=== PATIENT | male | born 1945 | race Caucasian/White ===

== ENCOUNTER 2023-09-24 18:09 | Outpatient (CLI) | payer OTHER | END 2023-09-24 23:59 | disposition critical access hospital (66) | LOC: EMS 18:09 | DX: R06.02 Shortness of breath (principal); R42 Dizziness and giddiness; R53.1 Weakness; R53.83 Other fatigue; R19.7 Diarrhea, unspecified; R50.9 Fever, unspecified; R00.0 Tachycardia, unspecified | CPT/HCPCS: A0425; A0427 ==

== ENCOUNTER 2023-09-24 18:21 | Inpatient (IN) | payer OTHER ==
[2023-09-24 18:52] LABS: BASOPHILS # (AUTO) 0.1 10^3/uL (0.0-0.1); BASOPHILS % (AUTO) 0.9 %; EOSINOPHILS # (AUTO) 0.2 10^3/uL (0.0-0.7); EOSINOPHILS % (AUTO) 1.6 %; HCT - HEMATOCRIT 44.3 % (42.0-52.0); HGB - HEMOGLOBIN 15.2 g/dL (14.0-18.0); LYMPHOCYTES # (AUTO) 0.8 10^3/uL (1.5-3.5); LYMPHOCYTES % (AUTO) 7.6 %; MEAN CORPUSCULAR HGB CONC 34.3 g/dL (32.0-36.0); MEAN CORPUSCULAR VOLUME 87.4 fL (80.0-94.0); MEAN PLATELET VOLUME 9.3 fL (7.4-11.4); MONOCYTES # (AUTO) 0.8 10^3/uL (0.0-1.0); MONOCYTES % (AUTO) 7.6 %; NEUTROPHILS # (AUTO) 8.5 10^3/uL (1.5-6.6); NEUTROPHILS % (AUTO) 81.9 %; PLT - PLATELET COUNT 229 10^3/uL (130-450); RED BLOOD COUNT 5.07 10^6/uL (4.70-6.10); RED CELL DISTRIBUTION WIDTH 13.9 % (12.0-15.0); WHITE BLOOD COUNT 10.3 x10^3/uL (4.8-10.8)
[2023-09-24 19:05] LABS: MAGNESIUM 1.6 mg/dL (1.7-2.3)
[2023-09-24 19:11] LABS: ALBUMIN 4.8 g/dL (3.2-5.5); ALBUMIN/GLOBULIN RATIO 2.3 (1.0-2.2); BILIRUBIN,TOTAL 1.6 mg/dL (0.2-1.0); CALCIUM 9.8 mg/dL (8.5-10.3); CREATININE 1.3 mg/dL (0.6-1.3); TOTAL PROTEIN 6.9 g/dL (6.4-8.9)
--- NOTE | 2023-09-24 19:31 | ED Physician Documentation ---
History of Present Illness - Stated complaint Stated Complaint: SYNCOPE/WEAKNESS - Chief complaint Chief Complaint: General - Additonal information Additional information: 78-year-old male with history of hypertension, coronary artery disease, heart attack presents emergency department for syncopal episode that occurred at home. Patient is here visiting from [place] he recently mated a couple days ago. Since he landed he has been having some shortness of breath and generalized malaise. Patient was going to take a shower today and started to experience Increased weakness he is here today with his daughter his daughter said that she noticed that he is stumbling around she heard him fall in the shower she is unsure if he hit his head or not but thinks that maybe he had his head on the shower by the way it sounded. Patient is also been having some fevers at home does endorse an increase shortness of breath. PD PAST MEDICAL HISTORY - Past Medical History Cardiovascular: Coronary artery disease, [place] Respiratory: None Neuro: None HEENT: None - Past Surgical History Cardiovascular: Coronary stent - Allergies Allergies/Adverse Reactions: Allergies Allergy/AdvReac Type Severity Reaction Status Date / Time chlorpromazine AdvReac Anaphylaxis Verified 09/24/23 18:51 [From Thorazine] Tetanus Vaccines and Toxoid AdvReac Anaphylaxis Verified 09/24/23 18:51 - Social History Does the pt smoke?: No Smoking Status: Never smoker Does the pt drink ETOH?: Yes ETOH Use: Beer Does the pt have substance abuse?: No - POLST Patient has POLST: No PD ED PE NORMAL - Vitals Vital signs reviewed: Yes - General General: Alert and oriented X 3, No acute distress, Other (obese) - Cardiac Cardiac: Other (tachycardic) - Respiratory Respiratory: No respiratory distress, Clear bilaterally - Abdomen Abdomen: Normal bowel sounds, Soft - Back Back: No CVA TTP - Derm Derm: Normal color, Warm and dry, No rash - Extremities Extremities: No edema, No calf tenderness / cord - Neuro Verbal: Confused Results - Vitals Vitals: Vital Signs - 24 hr 09/24/23 09/24/23 18:39 20:40 Temperature 39.4 C H Heart Rate 119 H 102 H Respiratory 26 H 28 H Rate Blood Pressure 149/89 H 170/87 H O2 Saturation 97 97 If not protocol 3 : Oxygen Flow, liters/minute Oxygen O2 Source Nasal cannula - EKG (time done) 1935 EKG releavant findings:: EKG personally interpreted by author of this note. Relevant findings are: Rate: Rate (enter#) (110) Rhythm: Sinus tachycardia, Other (RBBB) [place]: LAD QRS: Normal Ischemia: Normal ST segments Computer interpretation: Agree with computer - Labs Labs: Laboratory Tests 09/24/23 09/24/23 09/24/23 18:42 18:42 18:42 WBC 10.3 RBC 5.07 Hgb 15.2 Hct 44.3 MCV 87.4 MCH 30.0 MCHC 34.3 RDW 13.9 Plt Count 229 MPV 9.3 Neut # (Auto) 8.5 H Lymph # (Auto) 0.8 L [place] # (Auto) 0.8 Eos # (Auto) 0.2 Baso # (Auto) 0.1 Absolute Nucleated RBC 0.00 Nucleated RBC % 0.0 D-Dimer Sodium 139 Potassium 4.0 Chloride 105 Carbon Dioxide 22 Anion Gap 12.0 BUN 18 Creatinine 1.3 Estimated GFR (MDRD) 54 L Glucose 161 H Calcium 9.8 Magnesium 1.6 L Total Bilirubin 1.6 H AST 64 H ALT 50 Alkaline Phosphatase 82 Troponin I High Sens B-Natriuretic Peptide 61 Total Protein 6.9 Albumin 4.8 Globulin 2.1 Albumin/Globulin Ratio 2.3 H Lipase 23 Urine Color Urine Clarity Urine pH Ur Specific [place] Urine Protein Urine Glucose (UA) Urine Ketones Urine Occult Blood Urine Nitrite Urine Bilirubin Urine Urobilinogen Ur Leukocyte Esterase Urine RBC Urine WBC Ur Squamous Epith Cells Urine Bacteria Urine Culture Comments Nasal Adenovirus (PCR) Nasal B. parapertussis DNA (PCR) Nasal Coronavir 229E PCR Nasal Coronavir HKU1 PCR Nasal Coronavir NL63 PCR Nasal Coronavir OC43 PCR Nasal Enterovir/Rhinovir PCR Nasal Influenza B PCR Nasal Influenza A PCR Nasal Parainfluen 1 PCR Nasal Parainfluen 2 PCR Nasal Parainfluen 3 PCR Nasal Parainfluen 4 PCR Nasal RSV (PCR) Nasal B.pertussis DNA PCR Nasal C.pneumoniae (PCR) Sixto Human Metapneumo PCR Nasal M.pneumoniae (PCR) Nasal SARS-CoV-2 (PCR) 09/24/23 09/24/23 09/24/23 18:42 19:21 19:36 WBC RBC Hgb Hct MCV MCH MCHC RDW Plt Count MPV Neut # (Auto) Lymph # (Auto) Iz[place] # (Auto) Eos # (Auto) Baso # (Auto) Absolute Nucleated RBC Nucleated RBC % D-Dimer 243.3 Sodium Potassium Chloride Carbon Dioxide Anion Gap BUN Creatinine Estimated GFR (MDRD) Glucose Calcium Magnesium Total Bilirubin AST ALT Alkaline Phosphatase Troponin I High Sens 23.7 H* B-Natriuretic Peptide Total Protein Albumin Globulin Albumin/Globulin Ratio Lipase Urine Color Urine Clarity Urine pH Ur Specific [place] Urine Protein Urine Glucose (UA) Urine Ketones Urine Occult Blood Urine Nitrite Urine Bilirubin Urine Urobilinogen Ur Leukocyte Esterase Urine RBC Urine WBC Ur Squamous Epith Cells Urine Bacteria Urine Culture Comments Nasal Adenovirus (PCR) NOT DETECTED Nasal B. parapertussis DNA (PCR) NOT DETECTED Nasal Coronavir 229E PCR NOT DETECTED Nasal Coronavir HKU1 PCR NOT DETECTED Nasal Coronavir NL63 PCR NOT DETECTED Nasal Coronavir OC43 PCR NOT DETECTED Nasal Enterovir/Rhinovir PCR NOT DETECTED Nasal Influenza B PCR NOT DETECTED Nasal Influenza A PCR NOT DETECTED Nasal Parainfluen 1 PCR NOT DETECTED Nasal Parainfluen 2 PCR NOT DETECTED Nasal Parainfluen 3 PCR NOT DETECTED Nasal Parainfluen 4 PCR NOT DETECTED Nasal RSV (PCR) NOT DETECTED Nasal B.pertussis DNA PCR NOT DETECTED Nasal C.pneumoniae (PCR) NOT DETECTED [place]xt[place] Human Metapneumo PCR NOT DETECTED Nasal M.pneumoniae (PCR) NOT DETECTED Nasal SARS-CoV-2 (PCR) DETECTED A 09/24/23 19:44 WBC RBC Hgb Hct MCV MCH MCHC RDW Plt Count MPV Neut # (Auto) Lymph # (Auto) [place] # (Auto) Eos # (Auto) Baso # (Auto) Absolute Nucleated RBC Nucleated RBC % D-Dimer Sodium Potassium Chloride Carbon Dioxide Anion Gap BUN Creatinine Estimated GFR (MDRD) Glucose Calcium Magnesium Total Bilirubin AST ALT Alkaline Phosphatase Troponin I High Sens B-Natriuretic Peptide Total Protein Albumin Globulin Albumin/Globulin Ratio Lipase Urine Color YELLOW Urine Clarity CLEAR Urine pH 5.5 Ur Specific [place] 1.025 Urine Protein TRACE Urine Glucose (UA) NEGATIVE Urine Ketones TRACE Urine Occult Blood NEGATIVE Urine Nitrite NEGATIVE Urine Bilirubin NEGATIVE Urine Urobilinogen 0.2 (NORMAL) Ur Leukocyte Esterase NEGATIVE Urine RBC None Seen Urine WBC 0-3 Ur Squamous Epith Cells NONE SEEN Urine Bacteria None Seen Urine Culture Comments NOT INDICATED Nasal Adenovirus (PCR) Nasal B. parapertussis DNA (PCR) Nasal Coronavir 229E PCR Nasal Coronavir HKU1 PCR Nasal Coronavir NL63 PCR Nasal Coronavir OC43 PCR Nasal Enterovir/Rhinovir PCR Nasal Influenza B PCR Nasal Influenza A PCR Nasal Parainfluen 1 PCR Nasal Parainfluen 2 PCR Nasal Parainfluen 3 PCR Nasal Parainfluen 4 PCR Nasal RSV (PCR) Nasal B.pertussis DNA PCR Nasal C.pneumoniae (PCR) Sixto Human Metapneumo PCR Nasal M.pneumoniae (PCR) Nasal SARS-CoV-2 (PCR) - Rads (name of study) Head CT without Relevant Findings:: Final report received, EMP independent interpretation of test, Other (No acute intracranial abnormalities or findings.) CT cervical without Relevant Findings:: Final report received, EMP independent interpretation of test, Other (No subluxation no fractures) CT chest angio Relevant Findings:: Final report received, EMP independent interpretation of test, Other (Cardiomegaly no pulmonary embolism) PD Medical Decision Making - ED course ED course: 78-year-old male presents emergency department after a syncopal episode lost consciousness for unknown period of time did hit his head. Patient appears to be slightly altered he is able to tell me that he has a past medical history that includes cardiac issues but he is not unable to tell me more details than that. Because patient recently traveled he is quite tachycardic and he had the syncopal episode we went ahead and did a CTA angio of his chest to rule out pulmonary embolism which came back negative. We also did a head and neck CT without contrast also for further evaluation of any sort of intracranial abnormalities or cervical trauma which also came back negative. Labs are complete for further evaluation no leukocytosis no anemia. Patient did have very mild hypomagnesemia he was given 400 mg p.o. magnesium oxide in the emergency department for supplementation GFR slightly suppressed at 54 troponin very mildly elevated at 23.7. He was given a liter of 500 cc normal saline in the ER for most likely dehydration. He also requested to have a Lui catheter placed as he has chronic urinary retention normally takes Flomax but says that he has been feeling like he is having urinary retention unable to void. His urine did also appear quite concentrated. Respiratory panel was also complete for further evaluation given that patient is quite tachycardic, tachypneic and febrile and he tested positive for COVID-19. He is vaccinated against COVID. At this point in time given his tachypnea and his fever and altered mental status I do believe that patient would benefit from an overnight observation hospitalization for his COVID symptoms.. 2 sets of blood cultures were complete per request of hospitalist and hospitalist has graciously agreed to accept the patient for observation overnight and patient has agreed to be admitted overnight. Departure - Departure Disposition: [facility] DC/Xfer Clinical Impression: COVID-19, AMS (altered mental status) Discharge Date/Time: 09/24/23 22:46
[2023-09-24 19:48] LABS: BILIRUBIN,URINE NEGATIVE (NEGATIVE); GLUCOSE, URINE (UA) NEGATIVE (NEGATIVE); KETONES,URINE (UA) TRACE mg/dL (NEGATIVE); LEUKOCYTE ESTERASE, URINE NEGATIVE (NEGATIVE); NITRITE,URINE NEGATIVE (NEGATIVE); OCCULT BLOOD,URINE NEGATIVE (NEGATIVE); PH,URINE 5.5 PH (5.0-7.5); PROTEIN,URINE TRACE mg/dL (NEGATIVE); UROBILINOGEN,URINE 0.2 (NORMAL) E.U./dL (NORMAL)
[2023-09-24 19:49] LABS: CLARITY,URINE CLEAR (CLEAR)
[2023-09-24] MEDS ORDERED: iohexoL-300 100 ML VIAL ONE (19:55)
[2023-09-24 19:57] LABS: BACTERIA,URINE None Seen /HPF (None Seen); RBC,URINE None Seen /HPF (0-5); SQUAMOUS EPITHELIAL CELL,UR NONE SEEN (<= Few); WBC,URINE 0-3 /HPF (0-3)
[2023-09-24] MEDS: iohexoL-300 100 ML VIAL IVP ONE (20:19)
[2023-09-24 20:29] LABS: B. PARAPERTUSSIS- RESP PCR PAN NOT DETECTED; B. PERTUSSIS- RESP PCR PANEL NOT DETECTED; C. PNEUMONIAE- RESP PCR PANEL NOT DETECTED; CORONAVIRUS 229E-RESP PCR NOT DETECTED; CORONAVIRUS HKU1-RESP PCR NOT DETECTED; CORONAVIRUS NL63-RESP PCR NOT DETECTED; CORONAVIRUS OC43-RESP PCR NOT DETECTED; HUMAN METAPNEUMOVIRUS NOT DETECTED; INFLUENZA A- RESP PCR PANEL NOT DETECTED; INFLUENZA B - RESP PCR PANEL NOT DETECTED; M. PNEUMONIAE- RESP PCR PANEL NOT DETECTED; PARAINFLUENZA VIRUS 1 NOT DETECTED; PARAINFLUENZA VIRUS 2 NOT DETECTED; PARAINFLUENZA VIRUS 3 NOT DETECTED; PARAINFLUENZA VIRUS 4 NOT DETECTED; RHINOVIRUS/ENTEROVIRUS NOT DETECTED; RSV- RESP PCR PANEL NOT DETECTED
[2023-09-24 20:30] LABS: SARS-CoV-2 -RESP PCR PANEL DETECTED
--- NOTE | 2023-09-24 20:31 | CT Report ---
PROCEDURE: Head WO INDICATIONS: GLF, syncope TECHNIQUE: Noncontrast 4.5 mm thick angled axial sections acquired from the foramen magnum to the vertex. For r adiation dose reduction, the following was used: automated exposure control, adjustment of mA and/or kV according to patient size. COMPARISON: None. FINDINGS: Image quality: Excellent. CSF spaces: Basal cisterns are patent. No extra-axial fluid collections. Ventricles are symmetric in size and shape. Brain: No midline shift. No intracranial masses or hemorrhage. Hypodensities in the subcortical and periventricular white matter are most commonly seen in setting of chronic microvascular ischemic umair nges. Age-related cerebral and cerebellar volume loss is seen. Intracranial vascular calcifications a re noted in the internal carotid arteries. Skull and face: Calvarium and visualized facial bones are intact, without suspicious lesions. Sinuses: Mucous retention cysts in the maxillary sinuses. The remaining visualized paranasal sinuses and the mastoid air cells are clear. IMPRESSION: No acute intracranial pathology. Reviewed by: Jay Schwartz MD on 09/24/2023 8:29 PM PDT Approved by: Jay Schwartz MD on 09/24/2023 8:29 PM PDT Station ID: [id number]
--- NOTE | 2023-09-24 20:33 | CT Report ---
PROCEDURE: Cervical Spine WO INDICATIONS: glf, syncope TECHNIQUE: Noncontrast 3 mm thick sections acquired from the skull base to the T4 level. Sagittal and coronal r eformats were then constructed. For radiation dose reduction, the following was used: automated exp osure control, adjustment of mA and/or kV according to patient size. COMPARISON: None. FINDINGS: Image quality: Excellent. Bones: No acute fractures or dislocations. Visualized superior ribs are intact. Moderate multileve l spondylosis. Soft tissues: Prevertebral soft tissues are normal in thickness. No paravertebral hematomas. No ap ical pneumothoraces. IMPRESSION: No acute, displaced fracture or traumatic subluxation. Reviewed by: Jay Schwartz MD on 09/24/2023 8:31 PM PDT Approved by: Jay Schwartz MD on 09/24/2023 8:31 PM PDT Station ID: [id number]
--- NOTE | 2023-09-24 20:39 | CT Report ---
PROCEDURE: Angio Chest INDICATIONS: r/o PE CONTRAST: 80ml [id number] TECHNIQUE: After the administration of intravenous contrast, 2 mm axial images were acquired from the pulmonary apices to the posterior costophrenic angles during the arterial phase. In addition, 1 mm lung kernel and 5 mm soft tissue kernel reconstructions were performed. 3-dimensional coronal oblique maximum int ensity projection (MIP) reformats, 8 mm axial MIP, and 5 mm coronal and sagittal MPR reformats were t hen performed through the thorax. For radiation dose reduction, the following was used: automated exp osure control, adjustment of mA and/or kV according to patient size. COMPARISON: None. FINDINGS: Image quality: Excellent. Large vessels: No filling defects within the opacified pulmonary arteries, accounting for motion and contrast timing. No evidence of acute aortic syndrome or aortic aneurysm. Lungs and pleura: No consolidation. No pleural effusions. No pneumothorax. No suspicious pulmonary n odules which require follow up. Mediastinum: Heart size is moderately enlarged. No pericardial effusion. No large vessel abnormality. No mediastinal adenopathy by size criteria. Prominent epicardial fat-pad. Surgical clip is seen at the gastroesophageal junction Chest wall and lower neck: Thyroid is unremarkable. No axillary or supraclavicular adenopathy by size . Bones: No aggressive osseous abnormality. No acute displaced rib fracture. Upper Abdomen: Liver is hypoattenuating compatible with diffuse fatty infiltration. Cholelithiasis. C ontrast material is seen in the renal collecting systems. IMPRESSION: 1.No acute pulmonary embolus. No acute abnormality seen in the chest. 2.Moderate cardiomegaly. Mild to moderate coronary calcifications. 3.Diffuse hepatic steatosis. Reviewed by: Jay Schwartz MD on 09/24/2023 8:38 PM PDT Approved by: Jay Schwartz MD on 09/24/2023 8:38 PM PDT Station ID: [id number]
[2023-09-24] MEDS: SODIUM CHLORIDE 0.9% 500 ML IV ONE (20:47)
[2023-09-24] MEDS ORDERED: SODIUM CHLORIDE FLUSH 0.9% 10 ML SYRINGE IVP PRN (21:50)
[2023-09-24] MEDS ORDERED: ONDANSETRON 4 MG/2 ML VIAL IVP PRN (21:50)
--- NOTE | 2023-09-24 22:04 | HISTORY & PHYSICAL EXAMINATION ---
Chief Complaint - Chief Complaint Chief Complaint: Syncope History of Present Illness - History of Present Illness HPI Comment/Other: 78-year-old male with history of hypertension, coronary artery disease, heart attack presents emergency department for syncopal episode that occurred at home. Patient is here visiting from [place] he recently mated a couple days ago. Since he landed he has been having some shortness of breath and generalized malaise. Patient was going to take a shower today and started to experience Increased weakness he is here today with his daughter his daughter said that she noticed that he is stumbling around she heard him fall in the shower she is unsure if he hit his head or not but thinks that maybe he had his head on the shower by the way it sounded. Patient is also been having some fevers at home does endorse an increase shortness of breath. On presentation, pt was febrile, tachycardic Labs showed WBC 10.2, Mag 1.6. COVID positive CT head, C spine and CTA chest showed no acute abnormalities In ER, pt was given IVF Pt is admitted due to syncope, weakness, COVID, Dehydration, hypomagnesemia and AMS History - Past Medical History Cardiovascular: reports: Coronary artery disease, [place] Respiratory: reports: None Neuro: reports: None HEENT: reports: None - Past Surgical History Cardiovascular: reports: Coronary stent - POLST Patient has POLST: No Meds/Allgy - Allergies Allergies/Adverse Reactions: Allergies Allergy/AdvReac Type Severity Reaction Status Date / Time chlorpromazine AdvReac Anaphylaxis Verified 09/24/23 18:51 [From Thorazine] Tetanus Vaccines and Toxoid AdvReac Anaphylaxis Verified 09/24/23 18:51 Review of Systems - Constitutional Constitutional: reports: Weakness - Other Findings Other Findings: 10 point systems were reviewed and were negative except mentioned in HPI Exam - Vital Signs Vital Signs: Vital Signs x48h Temp Pulse Resp BP Pulse Ox O2 Flow Rate 09/24/23 20:40 102 H 28 H 170/87 H 97 3 09/24/23 18:39 39.4 C H 119 H 26 H 149/89 H 97 - Physical Exam General Appearance: positive: No acute distress Eyes Bilateral: positive: Normal inspection ENT: positive: ENT inspection nml Neck: positive: Nml inspection Respiratory: positive: No respiratory distress Cardiovascular: positive: Tachycardia Abdomen: positive: Non-tender, No distention Skin: positive: No rash Neurologic/Psychiatric: positive: Motor nml, Disoriented to time Conclusion/Plan - Lab Results Fish Bones: 09/24/23 18:42 09/24/23 18:42 - Other Other Results/Comments: A: Syncope Weakness AMS COVID Dehydration Hypomagnesemia HTN CAD H/O TX Plan; Admit in tele Continuous cardiac monitoring Seriel cardiac enZymes Echocardiogram Cont IVF Monitor i/o, electrolytes PT eval NPO Swallow eval Neuro checks Follow cultures Start Rocephin and zithromax Replace magnesium DVT prophylaxic: SCD Full code Pt is admitted as inpatient as more than 2 midnight stay is expected
[2023-09-25] MEDS: SODIUM CHLORIDE FLUSH 0.9% 10 ML SYRINGE IVP SCH (01:16)
[2023-09-25] MEDS: SODIUM CHLORIDE 0.9% 1,000 ML IV SCH (01:16)
[2023-09-25] MEDS: ACETAMINOPHEN 325 MG TABLET PO PRN (04:08)
[2023-09-25] MEDS: cefTRIAXone 1 GM in SODIUM CHLORIDE 0.9% MINIBAG 100 ML IV SCH (08:58)
[2023-09-25] MEDS: AZITHROMYCIN INJ 500 MG in SODIUM CHLORIDE 0.9% 250 ML IV SCH (10:44)
[2023-09-25] MEDS ORDERED: MAGNESIUM SULFATE 1 GM in SODIUM CHLORIDE 0.9% 50 ML IV ONE (11:11)
[2023-09-25] MEDS ORDERED: NON FORMULARY MED (Remdesivir 200 MG) IVP ONE (11:23)
--- NOTE | 2023-09-25 11:29 | PROVIDER PROGRESS NOTE ---
Assessment/Plan - Problem List (1) Syncope and collapse Assessment/Plan: Syncopal episode with fall which precipitated admission. Had a fall in the shower yesterday. Syncopal workup initiated. Although causes thought to be his COVID and resultant hypoxia. Echocardiogram is pending at this time. Head CT was negative. Cervical spine CT was negative. Patient does not have any neck pain or back pain today. (2) COVID-19 Assessment/Plan: Symptoms began yesterday just prior to his episode of syncope and collapse. He had his initial 2 COVID vaccinations but did not have any booster shots. Given that he has had 1 day of symptoms prior to admission. Will start remdesivir per protocol as this is 200 mg IV today and then 100 mg a day for 4 days. He will a lso be started on Decadron 6 mg daily for 10 days. Chest imaging, a CTA of the chest due to rule out pulmonary embolus was negative, or PE as well as for pneumonia.. Hypoxia is improving. He was able to sit up at the edge of the bed with minimal assistance and has an O2 sat of 97% on 3 L. He does not have any baseline lung disease. He is not on any respiratory medications at home per his report. Pharmacy is currently reconciling his medications. (3) Troponin level elevated Assessment/Plan: This patient is without chest pain at this time. He has some shortness of breath on exertion consistent with his COVID symptomatology. His troponin was elevated in the 20s this morning. Came up to the 40s after admission. Has a history of CAD s/p [place] in the past. Denies any interventions for this. (4) AMS (altered mental status) Qualifiers: Altered mental status type: disorientation Qualified Code(s): R41.0 - Disorientation, unspecified Assessment/Plan: He is currently alert and oriented to person place and time. His altered mental status has resolved.He feels sleepy and tired but has otherwise improved his mental status greatly after treatment with supplemental oxygen.Will continue to treat with supplemental oxygen and hopefully can eventually wean. (5) Hypomagnesemia Assessment/Plan: Level was 1.6 this morning. I have ordered replacement today. We will check magnesium level again in the a.m. (6) Dehydration Assessment/Plan: He is currently on IV NS at 80 mL/h. He is taking p.o. fluids at this time. He is not having any difficulty swallowing. Had some ketones in his urine at the time of admission. Galindo is in place for accurate intake/output monitoring. Additionally patient was unable to urinate while lying down last night. We will plan to discontinue this Galindo tomorrow morning. Patient was educated about the risk of catheter associated urinary tract infection. (7) Serum total bilirubin elevated Assessment/Plan: Patient has no jaundice on exam. Level is elevated at 1.6. I do not have any history with regards to this. Will repeat CMP in the a.m. (8) Pre-diabetes Assessment/Plan: Patient gives a history of prediabetes in the outpatient environment. He is not on any treatment for this. Aside from diet control. Given the fact that we will be treating his COVID with hypoxia with Decadron. Will need to institute glucose monitoring and will aim to keep his glucose at less than 140 while inpatient.For now I have started correction insulin only. However can escalate as dictated by clinical circumstances. Will check hemoglobin A1c to get an idea of where his diabetes treatment and management is at this time. (9) Hypertension Qualifiers: Hypertension type: primary hypertension Qualified Code(s): I10 - Essential (primary) hypertension Assessment/Plan: Pharmacy currently reconciling medications. has been hypertensive here up to 170/87 in the ED. I will reinstitute home blood pressure medications here. - Current Meds Current Meds: Current Medications Generic Name Dose Route Start Last Admin Trade Name Freq PRN Reason Stop Dose Admin Acetaminophen 650 mg 09/25/23 00:15 09/25/23 04:08 Acetaminophen 325 Mg Tablet PO 650 mg Q4HR PRN Administration Pain or Fever > 38C (100.4F) Ceftriaxone Sodium 1 gm/ 100 mls @ 200 mls/hr 09/25/23 09:00 09/25/23 08:58 Sodium Chloride IV 200 mls/hr DAILY GLORIA Administration Azithromycin 500 mg/ Sodium 250 mls @ 250 mls/hr 09/25/23 09:00 09/25/23 10:44 Chloride IV 250 mls/hr DAILY GLORIA Administration Sodium Chloride 1,000 mls @ 80 mls/hr 09/24/23 23:00 09/25/23 01:16 Normal Saline 0.9% IV 80 mls/hr .[id number] GLORIA Administration Sodium Chloride 10 ml 09/25/23 01:00 09/25/23 08:58 Sodium Chloride Flush 0.9% 10 Ml Syringe IVP 10 ml 0100,0900,1700 GLOIRA Administration - Lab Result Fish Bone Diagrams: 09/24/23 18:42 09/24/23 18:42 - Additional Planning My Orders: My Active Orders 09/25/23 11:23 Remdesivir 200 mg IVP ONCE ONE 09/25/23 12:00 Magnesium Sulfate 2 Gram [Magnesium Sulfate] 2 gm in 50 ml IV ONCE dexAMETHasone [Decadron] 4 mg PO DAILY Subjective - Subjective Patient Reports: Feeling Better (He feels much improved as compared to his stat us yesterday. He states that he is still coughing. This cough and all of his symptoms started yesterday prior to his episode of syncope and collapse. He states that he never feels truly well, however he was [place] the [place]), Cough (On deep inspiration.) Nursing Reports: No Complaints Objective Vital Signs: Vital Signs - 24 hr 09/24/23 09/24/23 09/24/23 18:39 20:40 22:00 Temperature 39.4 C H 37.6 C Heart Rate 119 H 102 H 98 Heart Rate [ Brachial] Respiratory 26 H 28 H 20 Rate Blood Pressure 149/89 H 170/87 H 135/76 H Blood Pressure [Right Brachial artery] O2 Saturation 97 97 99 If not protocol 3 2 : Oxygen Flow, liters/minute 09/24/23 09/24/23 09/25/23 22:54 23:00 01:21 Temperature 38.1 C H 37.4 C Heart Rate Heart Rate [ 99 85 Brachial] Respiratory 24 26 H Rate Blood Pressure Blood Pressure 155/77 H 148/69 H [Right Brachial artery] O2 Saturation 94 96 If not protocol 3 3 3 : Oxygen Flow, liters/minute 09/25/23 09/25/23 09/25/23 04:05 05:40 09:00 Temperature 38.6 C H 36.6 C 36.4 C L Heart Rate Heart Rate [ 88 77 Brachial] Respiratory 20 20 Rate Blood Pressure Blood Pressure 148/81 H 143/84 H [Right Brachial artery] O2 Saturation 96 98 If not protocol 3 3 : Oxygen Flow, liters/minute 09/25/23 10:45 Temperature Heart Rate Heart Rate [ Brachial] Respiratory Rate Blood Pressure Blood Pressure [Right Brachial artery] O2 Saturation 97 If not protocol 2 : Oxygen Flow, liters/minute Oxygen O2 Source Nasal cannula I&O (Last 24 Hrs): Intake and Output Totals x24h 09/23/23 09/24/23 09/25/23 23:59 23:59 23:59 Intake Total 500 440 Output Total 525 650 Balance -25 -210 General: Alert, Oriented x3, Cooperative HEENT: PERRLA, Mucous membr. moist/pink Neck: Supple, No JVD Lymphatic: no adenopathy Neuro: Alert, Non Focal Cardiovascular: Regular rate Respiratory: Rhonchi (occasional on cough) Abdomen: Normal bowel sounds, No tenderness Genitourinary: Normal Inspection (galindo in place) Extremities: No cyanosis, No edema, Normal pulses Skin: No significant lesion (multiple healing lesions about the lower extr emities, no erythema.) - Results Results: Laboratory Results WBC 10.3 x10^3/uL (4.8-10.8) 09/24/23 18:42 RBC 5.07 10^6/uL (4.70-6.10) 09/24/23 18:42 Hgb 15.2 g/dL (14.0-18.0) 09/24/23 18:42 Hct 44.3 % (42.0-52.0) 09/24/23 18:42 MCV 87.4 fL (80.0-94.0) 09/24/23 18:42 MCH 30.0 pg (27.0-31.0) 09/24/23 18:42 MCHC 34.3 g/dL (32.0-36.0) 09/24/23 18:42 RDW 13.9 % (12.0-15.0) 09/24/23 18:42 Plt Count 229 10^3/uL (130-450) 09/24/23 18:42 MPV 9.3 fL (7.4-11.4) 09/24/23 18:42 Neut # (Auto) 8.5 10^3/uL (1.5-6.6) H 09/24/23 18:42 Lymph # (Auto) 0.8 10^3/uL (1.5-3.5) L 09/24/23 18:42 [place] # (Auto) 0.8 10^3/uL (0.0-1.0) 09/24/23 18:42 Eos # (Auto) 0.2 10^3/uL (0.0-0.7) 09/24/23 18:42 Baso # (Auto) 0.1 10^3/uL (0.0-0.1) 09/24/23 18:42 Absolute Nucleated RBC 0.00 x10^3/uL 09/24/23 18:42 Nucleated RBC % 0.0 /100WBC 09/24/23 18:42 D-Dimer 243.3 ng/mL (200.0-255.0) 09/24/23 19:21 Sodium 139 mmol/L (135-145) 09/24/23 18:42 Potassium 4.0 mmol/L (3.5-4.5) 09/24/23 18:42 Chloride 105 mmol/L (101-111) 09/24/23 18:42 Carbon Dioxide 22 mmol/L (21-32) 09/24/23 18:42 Anion Gap 12.0 (6-13) 09/24/23 18:42 BUN 18 mg/dL (6-20) 09/24/23 18:42 Creatinine 1.3 mg/dL (0.6-1.3) 09/24/23 18:42 Estimated GFR (MDRD) 54 (>89) L 09/24/23 18:42 Glucose 161 mg/dL (74-104) H 09/24/23 18:42 Calcium 9.8 mg/dL (8.5-10.3) 09/24/23 18:42 Magnesium 1.6 mg/dL (1.7-2.3) L 09/24/23 18:42 Total Bilirubin 1.6 mg/dL (0.2-1.0) H 09/24/23 18:42 AST 64 IU/L (10-42) H 09/24/23 18:42 ALT 50 IU/L (10-60) 09/24/23 18:42 Alkaline Phosphatase 82 IU/L (42-121) 09/24/23 18:42 Troponin I High Sens 43.9 ng/L (2.3-19.7) H* 09/25/23 05:45 B-Natriuretic Peptide 61 pg/mL (5-100) 09/24/23 18:42 Total Protein 6.9 g/dL (6.4-8.9) 09/24/23 18:42 Albumin 4.8 g/dL (3.2-5.5) 09/24/23 18:42 Globulin 2.1 g/dL (2.1-4.2) 09/24/23 18:42 Albumin/Globulin Ratio 2.3 (1.0-2.2) H 09/24/23 18:42 Lipase 23 U/L (11-82) 09/24/23 18:42 Urine Color YELLOW 09/24/23 19:44 Urine Clarity CLEAR (CLEAR) 09/24/23 19:44 Urine pH 5.5 PH (5.0-7.5) 09/24/23 19:44 Ur Specific [place] 1.025 (1.002-1.030) 09/24/23 19:44 Urine Protein TRACE mg/dL (NEGATIVE) 09/24/23 19:44 Urine Glucose (UA) NEGATIVE mg/dL (NEGATIVE) 09/24/23 19:44 Urine Ketones TRACE mg/dL (NEGATIVE) 09/24/23 19:44 Urine Occult Blood NEGATIVE (NEGATIVE) 09/24/23 19:44 Urine Nitrite NEGATIVE (NEGATIVE) 09/24/23 19:44 Urine Bilirubin NEGATIVE (NEGATIVE) 09/24/23 19:44 Urine Urobilinogen 0.2 (NORMAL) E.U./dL (NORMAL) 09/24/23 19:44 Ur Leukocyte Esterase NEGATIVE (NEGATIVE) 09/24/23 19:44 Urine RBC None Seen /HPF (0-5) 09/24/23 19:44 Urine WBC 0-3 /HPF (0-3) 09/24/23 19:44 Ur Squamous Epith Cells NONE SEEN (<= Few) 09/24/23 19:44 Urine Bacteria None Seen /HPF (None Seen) 09/24/23 19:44 Urine Culture Comments NOT INDICATED 09/24/23 19:44 Nasal Adenovirus (PCR) NOT DETECTED 09/24/23 19:36 Nasal B. parapertussis DNA (PCR) NOT DETECTED 09/24/23 19:36 Nasal Coronavir 229E PCR NOT DETECTED 09/24/23 19:36 Nasal Coronavir HKU1 PCR NOT DETECTED 09/24/23 19:36 Nasal Coronavir NL63 PCR NOT DETECTED 09/24/23 19:36 Nasal Coronavir OC43 PCR NOT DETECTED 09/24/23 19:36 Nasal Enterovir/Rhinovir PCR NOT DETECTED 09/24/23 19:36 Nasal Influenza B PCR NOT DETECTED 09/24/23 19:36 Nasal Influenza A PCR NOT DETECTED 09/24/23 19:36 Nasal Parainfluen 1 PCR NOT DETECTED 09/24/23 19:36 Nasal Parainfluen 2 PCR NOT DETECTED 09/24/23 19:36 Nasal Parainfluen 3 PCR NOT DETECTED 09/24/23 19:36 Nasal Parainfluen 4 PCR NOT DETECTED 09/24/23 19:36 Nasal RSV (PCR) NOT DETECTED 09/24/23 19:36 Nasal B.pertussis DNA PCR NOT DETECTED 09/24/23 19:36 Nasal C.pneumoniae (PCR) NOT DETECTED 09/24/23 19:36 Sixto Human Metapneumo PCR NOT DETECTED 09/24/23 19:36 Nasal M.pneumoniae (PCR) NOT DETECTED 09/24/23 19:36 Nasal SARS-CoV-2 (PCR) DETECTED A 09/24/23 19:36 ABX Reporting Has patient been on IV antibiotics over the past 48 hours?: Yes Current Medications - Current Medications Current Medications: Medications Azithromycin 500 mg/ Sodium (Chloride) 250 mls @ 250 mls/hr IV DAILY [facility] Last Admin: 09/25/23 10:44 Dose: 250 mls/hr Remdesivir 100 mg/ Sodium (Chloride) 100 mls @ 200 mls/hr IV DAILY [facility] Stop: 09/29/23 09:29 Ceftriaxone Sodium 1 gm/ (Sodium Chloride) 100 mls @ 200 mls/hr IV DAILY [facility] Last Admin: 09/25/23 08:58 Dose: 200 mls/hr Dexamethasone (Dexamethasone 4 Mg Tablet) 6 mg PO DAILY [facility] Stop: 10/04/23 09:01 Acetaminophen (Acetaminophen 325 Mg Tablet) 650 mg PO Q4HR PRN PRN Reason: Pain or Fever > 38C (100.4F) Last Admin: 09/25/23 04:08 Dose: 650 mg Magnesium Sulfate (Magnesium Sulfate) 2 gm in 50 mls @ 25 mls/hr IV ONCE ONE Stop: 09/25/23 13:59 Remdesivir 200 mg/ Sodium (Chloride) 250 mls @ 250 mls/hr IV ONCE ONE Stop: 09/25/23 13:59 Sodium Chloride (Normal Saline 0.9%) 1,000 mls @ 80 mls/hr IV .[id number] GLORIA Last Admin: 09/25/23 01:16 Dose: 80 mls/hr
--- NOTE | 2023-09-25 11:30 | PHARMACY PROGRESS NOTE ---
- Best Possible Medication History Admit Date and Time: 09/24/23 2390 Processed by: Pharmacy Medications reviewed in ED?: No Medication History completed: Yes Secondary Source(s): Written medication list, Pharmacy records As the person ultimately responsible for medication therapy, providers are able to order a medication from an existing home medication list in [facility] via the "Reconcile Routine" prior to Confirmation of that medication by production support manager. Such practice is discouraged except when the physician, in their clinical judgment, deems that a medical need exists for a medication without regard to previous use.
[2023-09-25] MEDS: dexAMETHasone 4 MG TABLET PO SCH (13:17)
[2023-09-25] MEDS: MAGNESIUM SULFATE 2 GRAM 2 GM/50 ML BAG IV ONE (13:17)
[2023-09-25 13:50] LABS: ESTIMATED AVERAGE GLUCOSE 134 mg/dL (70-100); HEMOGLOBIN A1c% 6.3 % (4.27-6.07)
[2023-09-25] MEDS: TAMSULOSIN 0.4 MG CAPSULE PO SCH (14:44)
[2023-09-25] MEDS: REMDESIVIR 200 MG in SODIUM CHLORIDE 0.9% 250 ML IV ONE (15:15)
[2023-09-25] MEDS: INSULIN LISPRO 300 UNIT/3 ML PEN SUBQ SCH (17:21)
[2023-09-25] MEDS: METOPROLOL TARTRATE 50 MG TABLET PO SCH (20:50)
[2023-09-25] MEDS: LOPERAMIDE 2 MG CAPSULE PO PRN (20:50)
[2023-09-26] MEDS: PANTOPRAZOLE 40 MG TABLET PO SCH (06:06)
[2023-09-26 06:22] LABS: HCT - HEMATOCRIT 42.5 % (42.0-52.0); MEAN CORPUSCULAR HEMOGLOBIN 28.9 pg (27.0-31.0); MEAN CORPUSCULAR HGB CONC 32.9 g/dL (32.0-36.0); MEAN CORPUSCULAR VOLUME 87.8 fL (80.0-94.0); MEAN PLATELET VOLUME 9.8 fL (7.4-11.4); RED BLOOD COUNT 4.84 10^6/uL (4.70-6.10); RED CELL DISTRIBUTION WIDTH 13.6 % (12.0-15.0); WHITE BLOOD COUNT 6.7 x10^3/uL (4.8-10.8)
[2023-09-26 06:35] LABS: ALBUMIN 4.2 g/dL (3.2-5.5); ALBUMIN/GLOBULIN RATIO 1.7 (1.0-2.2); CALCIUM 9.3 mg/dL (8.5-10.3); CREATININE 1.3 mg/dL (0.6-1.3); POTASSIUM 4.2 mmol/L (3.5-4.5); TOTAL PROTEIN 6.7 g/dL (6.4-8.9)
[2023-09-26] MEDS: FLUTICASONE NASAL SPRAY NAS SCH (08:20)
[2023-09-26] MEDS: ATORVASTATIN 40 MG TABLET PO SCH (08:22)
[2023-09-26] MEDS: FOLIC ACID 1 MG TABLET PO SCH (08:22)
[2023-09-26] MEDS: REMDESIVIR 100 MG in SODIUM CHLORIDE 0.9% 100ML 100 ML IV SCH (08:23)
[2023-09-26] MEDS: METOPROLOL TARTRATE 50 MG TABLET PO SCH (08:29)
--- NOTE | 2023-09-26 12:19 | PROVIDER PROGRESS NOTE ---
Subjective - Prog Note Date Prog Note Date: 09/26/23 Prog Note Time: 12:15 - Subjective Pt reports feeling: Improved (Feels 100% better than at the time of admission. Cough is minimal. has been out of bed independently to the chair. Lui was removed this AM and he is voiding without difficulty. denies any chest pain, or extremity swelling.) Subjective: He is optimistic and feels that he could go home soon. Still having a little bit of fatigue. But denies any wheezing or shortness of breath at this time. We had discussed code status yesterday and he desires to be full code at this time. Current Medications - Current Medications Current Medications: Medications Acetaminophen (Acetaminophen 325 Mg Tablet) 650 mg PO Q4HR PRN PRN Reason: Pain or Fever > 38C (100.4F) Last Admin: 09/25/23 04:08 Dose: 650 mg Atorvastatin Calcium (Atorvastatin 40 Mg Tablet) 80 mg PO DAILY [facility] Last Admin: 09/26/23 08:22 Dose: 80 mg Dexamethasone (Dexamethasone 4 Mg Tablet) 6 mg PO DAILY [facility] Stop: 10/04/23 09:01 Last Admin: 09/26/23 08:21 Dose: 6 mg Fluticasone Propionate (Fluticasone Nasal [place]) 2 sprays DANIELITO DAILY [facility] Last Admin: 09/26/23 08:20 Dose: 2 sprays Folic Acid (Folic Acid 1 Mg Tablet) 1 mg PO DAILY [facility] Last Admin: 09/26/23 08:22 Dose: 1 mg Insulin Human Lispro (Insulin Lispro 300 Unit/3 Ml Pen) 1 - 5 unit SUBQ 0800,1200,1700,2100 [facility]; Protocol Last Admin: 09/26/23 12:00 Dose: 1 unit Loperamide HCl (Loperamide 2 Mg Capsule) 2 mg PO QID PRN PRN Reason: Diarrhea Last Admin: 09/25/23 20:50 Dose: 2 mg Metoprolol Tartrate (Metoprolol Tartrate 50 Mg Tablet) 50 mg PO BID [facility] Last Admin: 09/26/23 08:29 Dose: 50 mg Ondansetron HCl (Ondansetron 4 Mg/2 Ml Vial) 4 mg IVP Q6HR PRN PRN Reason: Nausea / Vomiting Pantoprazole Sodium (Pantoprazole 40 Mg Tablet) 40 mg PO QDAC [facility] Last Admin: 09/26/23 06:06 Dose: 40 mg Remdesivir 100 mg/ Sodium (Chloride) 100 mls @ 200 mls/hr IV DAILY [facility] Stop: 09/29/23 09:29 Last Admin: 09/26/23 11:14 Dose: Infused Tamsulosin HCl (Tamsulosin 0.4 Mg Capsule) 0.4 mg PO DAILY [facility] Last Admin: 09/26/23 08:23 Dose: 0.4 mg Objective - Vital Signs/Intake & Output Vital Signs: Vital Signs x48h Temp Pulse Resp BP BP Pulse Ox O2 Flow Rate 09/26/23 11:31 95 09/26/23 10:45 96 09/26/23 08:29 130/70 09/26/23 08:07 37 C 64 20 130/70 97 2 09/26/23 08:03 2 09/26/23 05:25 36.1 C L 60 22 123/69 97 2 Intake & Output: Intake & Output 09/23/23 09/24/23 09/25/23 09/26/23 23:59 23:59 23:59 23:59 Intake Total 500 3360 1767 Output Total 525 1975 450 Balance -25 1385 1317 - Objective General Appearance: positive: No acute distress Eyes Bilateral: positive: Normal inspection, PERRL ENT: positive: ENT inspection nml Neck: positive: Nml inspection, No JVD (fully bearded) Respiratory: positive: Chest non-tender, Breath sounds nml Cardiovascular: positive: Regular rate & rhythm Abdomen: positive: Non-tender Back: positive: Nml inspection Skin: positive: Color nml Extremities: positive: No pedal edema Neurologic/Psychiatric: positive: Oriented x3 - Lab Results Fish Bones: 09/26/23 06:04 09/26/23 06:04 Other Labs: Lab Results x24hrs 09/26/23 09/26/23 09/26/23 Range/Units 11:27 08:48 08:48 WBC (4.8-10.8) x10^3/uL RBC (4.70-6.10) 10^6/uL Hgb (14.0-18.0) g/dL Hct (42.0-52.0) % MCV (80.0-94.0) fL MCH (27.0-31.0) pg MCHC (32.0-36.0) g/dL RDW (12.0-15.0) % Plt Count (130-450) 10^3/uL MPV (7.4-11.4) fL Sodium (135-145) mmol/L Potassium (3.5-4.5) mmol/L Chloride (101-111) mmol/L Carbon Dioxide (21-32) mmol/L Anion Gap (6-13) BUN (6-20) mg/dL Creatinine (0.6-1.3) mg/dL Estimated GFR (MDRD) (>89) Glucose (74-104) mg/dL POC Whole Bld Glucose 166 H (70 - 100) mg/dL Estimat Average Glucose (70-100) mg/dL Hemoglobin A1c % (4.27-6.07) % Calcium (8.5-10.3) mg/dL Total Bilirubin (0.2-1.0) mg/dL AST (10-42) IU/L ALT (10-60) IU/L Alkaline Phosphatase (42-121) IU/L Troponin I High Sens 16.9 (2.3-19.7) ng/L Total Protein (6.4-8.9) g/dL Albumin (3.2-5.5) g/dL Globulin (2.1-4.2) g/dL Albumin/Globulin Ratio (1.0-2.2) Folate 16.0 (5.90 - >24.8) ng/mL 09/26/23 09/26/23 09/26/23 Range/Units 08:00 06:04 06:04 WBC (4.8-10.8) x10^3/uL RBC (4.70-6.10) 10^6/uL Hgb (14.0-18.0) g/dL Hct (42.0-52.0) % MCV (80.0-94.0) fL MCH (27.0-31.0) pg MCHC (32.0-36.0) g/dL RDW (12.0-15.0) % Plt Count (130-450) 10^3/uL MPV (7.4-11.4) fL Sodium 137 (135-145) mmol/L Potassium 4.2 (3.5-4.5) mmol/L Chloride 105 (101-111) mmol/L Carbon Dioxide 27 (21-32) mmol/L Anion Gap 5.0 L (6-13) BUN 16 (6-20) mg/dL Creatinine 1.3 (0.6-1.3) mg/dL Estimated GFR (MDRD) 54 L (>89) Glucose 148 H (74-104) mg/dL POC Whole Bld Glucose 133 H (70 - 100) mg/dL Estimat Average Glucose (70-100) mg/dL Hemoglobin A1c % (4.27-6.07) % Calcium 9.3 (8.5-10.3) mg/dL Total Bilirubin 1.0 (0.2-1.0) mg/dL AST 39 (10-42) IU/L ALT 42 (10-60) IU/L Alkaline Phosphatase 69 (42-121) IU/L Troponin I High Sens 16.2 (2.3-19.7) ng/L Total Protein 6.7 (6.4-8.9) g/dL Albumin 4.2 (3.2-5.5) g/dL Globulin 2.5 (2.1-4.2) g/dL Albumin/Globulin Ratio 1.7 (1.0-2.2) Folate (5.90 - >24.8) ng/mL 09/26/23 09/25/23 09/25/23 Range/Units 06:04 20:43 16:47 WBC 6.7 (4.8-10.8) x10^3/uL RBC 4.84 (4.70-6.10) 10^6/uL Hgb 14.0 (14.0-18.0) g/dL Hct 42.5 (42.0-52.0) % MCV 87.8 (80.0-94.0) fL MCH 28.9 (27.0-31.0) pg MCHC 32.9 (32.0-36.0) g/dL RDW 13.6 (12.0-15.0) % Plt Count 193 (130-450) 10^3/uL MPV 9.8 (7.4-11.4) fL Sodium (135-145) mmol/L Potassium (3.5-4.5) mmol/L Chloride (101-111) mmol/L Carbon Dioxide (21-32) mmol/L Anion Gap (6-13) BUN (6-20) mg/dL Creatinine (0.6-1.3) mg/dL Estimated GFR (MDRD) (>89) Glucose (74-104) mg/dL POC Whole Bld Glucose 199 H 164 H (70 - 100) mg/dL Estimat Average Glucose (70-100) mg/dL Hemoglobin A1c % (4.27-6.07) % Calcium (8.5-10.3) mg/dL Total Bilirubin (0.2-1.0) mg/dL AST (10-42) IU/L ALT (10-60) IU/L Alkaline Phosphatase (42-121) IU/L Troponin I High Sens (2.3-19.7) ng/L Total Protein (6.4-8.9) g/dL Albumin (3.2-5.5) g/dL Globulin (2.1-4.2) g/dL Albumin/Globulin Ratio (1.0-2.2) Folate (5.90 - >24.8) ng/mL 09/25/23 Range/Units 05:45 WBC (4.8-10.8) x10^3/uL RBC (4.70-6.10) 10^6/uL Hgb (14.0-18.0) g/dL Hct (42.0-52.0) % MCV (80.0-94.0) fL MCH (27.0-31.0) pg MCHC (32.0-36.0) g/dL RDW (12.0-15.0) % Plt Count (130-450) 10^3/uL MPV (7.4-11.4) fL Sodium (135-145) mmol/L Potassium (3.5-4.5) mmol/L Chloride (101-111) mmol/L Carbon Dioxide (21-32) mmol/L Anion Gap (6-13) BUN (6-20) mg/dL Creatinine (0.6-1.3) mg/dL Estimated GFR (MDRD) (>89) Glucose (74-104) mg/dL POC Whole Bld Glucose (70 - 100) mg/dL Estimat Average Glucose 134 H (70-100) mg/dL Hemoglobin A1c % 6.3 H (4.27-6.07) % Calcium (8.5-10.3) mg/dL Total Bilirubin (0.2-1.0) mg/dL AST (10-42) IU/L ALT (10-60) IU/L Alkaline Phosphatase (42-121) IU/L Troponin I High Sens (2.3-19.7) ng/L Total Protein (6.4-8.9) g/dL Albumin (3.2-5.5) g/dL Globulin (2.1-4.2) g/dL Albumin/Globulin Ratio (1.0-2.2) Folate (5.90 - >24.8) ng/mL - Diagnostic Imaging Diagnostic Imaging Results: positive: See rad report Diagnostic Imaging Comments: Echocardiogram shows normal LVH function with ejection fraction 60 to 65%. Mildly abnormal right heart pressures. Right ventricular systolic pressure 40 mmHg No valvular disease ABX Reporting Has patient been on IV antibiotics over the past 48 hours?: Yes Assessment/Plan - Problem List (1) Syncope and collapse Impression: Assessment/Plan: Syncopal episode with fall which precipitated admission. Had a fall in the shower on the date of admission Syncopal workup completed. I have reviewed echocardiogram report. His syncope was caused by COVID and resultant hypoxia. Head CT was negative. Cervical spine CT was negative. Patient does not have any neck pain or back pain. I anticipate discharge tomorrow. (2) COVID-19 Assessment/Plan: Symptoms began just prior to his episode of syncope and collapse. He had his initial 2 COVID vaccinations but did not have any booster shots. was started on remdesivir. Day #2/5 Decdron day #2. Chest imaging, a CTA of the chest due to rule out pulmonary embolus was negative, or PE as well as for pneumonia.. Hypoxia improved. O2 sat 95-97% on 2L NC. He does not have any baseline lung disease. He is not on any respiratory medications at home. (3) Troponin level elevated Assessment/Plan: This patient is without chest pain at this time. shortness of breath improved. Troponin with mild elevations at the time of admit, but back down today. 16.2. Has a history of CAD s/p [place] in the past. reports to me today that he has had stent placement in the past, and is on ASA 81mg at baseline. I will enedelia nstitute this therapy. (4) AMS (altered mental status) Qualifiers: Altered mental status type: disorientation Qualified Code(s): R41.0 - Disorientation, unspecified Assessment/Plan: He is currently alert and oriented to person place and time. His altered mental status has resolved.He feels sleepy and tired but has otherwise improved his mental status greatly after treatment with supplemental oxygen.Will continue to treat with supplemental oxygen and hopefully can eventually wean. (5) Hypomagnesemia Assessment/Plan: repleted yesterday. check magnesium level in AM (6) Dehydration Assessment/Plan: Eating, drinking and urinating well. no orthostatic dizziness, resolved. (7) Serum total bilirubin elevated Assessment/Plan: Patient has no jaundice on exam. Level was elevated at 1.6 at the time of admit. normalized today (8) Pre-diabetes Assessment/Plan: Patient gives a history of prediabetes in the outpatient environment. He is not on any treatment for this. Aside from diet control. We have instituted glucose monitoring given the fact that I have placed him on on Decadron. He is requiring small amounts of correction insulin for blood sugars which are less than 200. His hemoglobin A1c is 6.3%. Given his age this shows adequate control. (9) Hypertension Qualifiers: Hypertension type: primary hypertension Qualified Code(s): I10 - Essential (primary) hypertension Assessment/Plan: Home medications restarted. We did put hold parameters on his metoprolol as he has had some heart rates that have been in the low 60s. He did get his metoprolol this morning. And this would be a good idea in light of his coronary artery disease.
[2023-09-27 06:01] LABS: HCT - HEMATOCRIT 41.3 % (42.0-52.0); HGB - HEMOGLOBIN 14.1 g/dL (14.0-18.0); MEAN CORPUSCULAR HEMOGLOBIN 29.9 pg (27.0-31.0); MEAN CORPUSCULAR HGB CONC 34.1 g/dL (32.0-36.0); MEAN CORPUSCULAR VOLUME 87.5 fL (80.0-94.0); MEAN PLATELET VOLUME 9.8 fL (7.4-11.4); RED BLOOD COUNT 4.72 10^6/uL (4.70-6.10); RED CELL DISTRIBUTION WIDTH 13.8 % (12.0-15.0); WHITE BLOOD COUNT 7.2 x10^3/uL (4.8-10.8)
[2023-09-27 06:21] LABS: CALCIUM 9.2 mg/dL (8.5-10.3); CREATININE 1.2 mg/dL (0.6-1.3); MAGNESIUM 2.1 mg/dL (1.7-2.3); POTASSIUM 3.9 mmol/L (3.5-4.5)
[2023-09-27 08:48] VITALS: O2SAT 96
--- NOTE | 2023-09-27 11:07 | Discharge Plan ---
Discharge Plan Problem Reviewed?: Yes Disposition: Home, Self Care Condition: Good Prescriptions: dexAMETHasone [Decadron] 6 mg PO DAILY 2 Days #3 tab Diet: Diabetic Activity Restrictions: No Restrictions Shower Restrictions: No Driving Restrictions: No Assistance Devices: Wheelchair Instruction Topics: COVID-19 [facility], Flu and Cold: Nutrition, Prevention and Treatment Tips Plan of Treatment: You were admitted with weakness passing out and collapsed. It looks like the cause of all of this was a COVID infection. By treating this infection you have improved and are back to your baseline. I need you to try to do a good job controlling your diabetes as this could have been a contributing factor to why you got so sick. When you get back home to [place] it is important that you follow[facility] with [facility]. Care Goals: You need to make sure to rest and drink plenty of fluids. I will put you on 2 additional days of Decadron at 6 mg/day. Please watch your carbohydrate intake while you are on this medication. No Smoking: If you smoke, Please STOP! Call for help.
--- NOTE | 2023-09-27 11:16 | DISCHARGE SUMMARY ---
Discharge Summary Admit Date: 09/24/23 Discharge Date: 09/27/23 Discharging Provider: Margot MARTINEZ Primary Care Provider: [facility], [place], [place] Code Status: Attempt Resuscitation Condition at Discharge: Good Discharge Disposition: 01 Home, Self Care - DIAGNOSES Admission Diagnoses: Syncope Weakness AMS COVID Dehydration Hypomagnesemia HTN CAD H/O AZ Discharge Diagnoses with Status of Each Condition: Syncope and collapse Impression: Assessment/Plan: Syncopal episode with fall which precipitated admission. Had a fall in the shower on the date of admission Syncopal workup completed. I have reviewed echocardiogram report. His syncope was caused by COVID and resultant hypoxia. Head CT was negative. Cervical spine CT was negative. Patient does not have any neck pain or back pain. (2) COVID-19 Assessment/Plan: Symptoms began just prior to his episode of syncope and collapse. He had his initial 2 COVID vaccinations but did not have any booster shots. was started on remdesivir. He received 2 days of decadron and remdisivir. he was discharged to home with 2 additional days of decadron. Chest imaging, a CTA of the chest due to rule out pulmonary embolus was negative, or PE as well as for pneumonia.. Hypoxia improved. O2 sat 95-97% on 2L NC. He does not have any baseline lung disease. He is not on any respiratory medications at home. (3) Troponin level elevated Assessment/Plan: This patient is without chest pain at this time. shortness of breath improved. Troponin with mild elevations at the time of admit, but back down to 16.2. Has a history of CAD s/p AZ in the past. reports to me that he has had stent placement in the past, and is on ASA 81mg at baseline. I will reinstitute this therapy. Had 24 h of telemetry monitoring without evidence of ischemia or arrhythmia (4) AMS (altered mental status) Qualifiers: Altered mental status type: disorientation Qualified Code(s): R41.0 - Disorientation, unspecified Assessment/Plan: He is currently alert and oriented to person place and time. His altered mental status has resolved (5) Hypomagnesemia Assessment/Plan: Repleted and resolved. unclear etiology. - HPI History of Present Illness: From Telehealth H&P 78-year-old male with history of hypertension, coronary artery disease, heart attack presents emergency department for syncopal episode that occurred at home. Patient is here visiting from [place] he recently mated a couple days ago. Since he landed he has been having some shortness of breath and generalized malaise. Patient was going to take a shower today and started to experience Increased weakness he is here today with his daughter his daughter said that she noticed that he is stumbling around she heard him fall in the shower she is unsure if he hit his head or not but thinks that maybe he had his head on the shower by the way it sounded. Patient is also been having some fevers at home does endorse an increase shortness of breath. On presentation, pt was febrile, tachycardic Labs showed WBC 10.2, Mag 1.6. COVID positive CT head, C spine and CTA chest showed no acute abnormalities In ER, pt was given IVF Pt is admitted due to syncope, weakness, COVID, Dehydration, hypomagnesemia and AMS - HOSPITAL COURSE Hospital Course: Admitted after syncope and collapse at home with weakness, dehydration, hypomagnesemia and positive COVID test. He became symptomatic with his COVID on the date that he was admitted, remdesivir was started early on hospital day 2. He required some supplemental oxygen at 2 to 3 L via nasal cannula. His supplemental oxygen needs quickly resolved. Troponin was elevated at mid 20s at the time of admission and peaked in the mid 40s and then went back down. He has a history of coronary disease status post [place] and stenting. Syncope workup included telemetry monitoring for 24 hours which was unremarkable. No signs of ischemia no signs of arrhythmia. Echocardiogram showed no valvular heart disease. Normal left ventricular systolic function with an ejection fraction of 60 to 65% mildly abnormal right heart pressures, RSVP 40 mmHg. Dehydration. Ketones in the urine at the time of admission. Lui was in place for accurate I's and O's as well as because the patient had difficulty urinating in bed. This was removed early on hospital day 2. Hypomagnesiumia. 1.6 on admission repleted and was normal on recheck Elevated serum bili at 1.6 at the time of admission repeat CMP showed normalization. Prediabetes diet controlled in the outpatient environment. We had placed him on sliding scale insulin here given that he was on Decadron. He required very little insulin correction his hemoglobin A1c was 6.3%. - ALLERGIES Allergies/Adverse Reactions: Allergies Allergy/AdvReac Type Severity Reaction Status Date / Time chlorpromazine AdvReac Anaphylaxis Verified 09/24/23 18:51 [From Thorazine] Tetanus Vaccines and Toxoid AdvReac Anaphylaxis Verified 09/24/23 18:51 - MEDICATIONS Home Medications: Ambulatory Orders Medication Instructions Recorded Confirmed Atorvastatin Calcium [Lipitor] 80 mg PO DAILY 09/25/23 09/25/23 Fluticasone [Flonase] 2 sprays DANIELITO DAILY 09/25/23 09/25/23 Folic Acid 1 mg PO DAILY 09/25/23 09/25/23 Meloxicam 15 mg PO DAILY PRN 09/25/23 09/25/23 Metoprolol Tartrate [Lopressor] 50 mg PO BID 09/25/23 09/25/23 Nitroglycerin [Nitrostat] 0.4 mg SL PRN PRN 09/25/23 09/25/23 Omeprazole [PriLOSEC] 20 mg PO BID 09/25/23 09/25/23 Psyllium [Metamucil] 1 packet PO DAILY PRN 09/25/23 09/25/23 Tamsulosin [Flomax] 0.4 mg PO DAILY 09/25/23 09/25/23 dexAMETHasone [Decadron] 6 mg PO DAILY 2 Days #3 tab 09/27/23 - PHYSICAL EXAM AT DISCHARGE General Appearance: positive: No acute distress Eyes Bilateral: positive: Normal inspection ENT: positive: ENT inspection nml Neck: positive: Nml inspection Respiratory: positive: Chest non-tender, No respiratory distress, Breath sounds nml Cardiovascular: positive: Regular rate & rhythm Abdomen: positive: Non-tender Back: positive: Nml inspection Skin: positive: Color nml Extremities: positive: Non-tender, No pedal edema Neurologic/Psychiatric: positive: Oriented x3, Motor nml - LABS Result Diagrams: 09/27/23 05:30 09/27/23 05:30 - FOLLOW UP Follow Up: PCP when he gets home to [place]. [place] SPENT Time Spent in Discharge (Minutes): 35
[2023-09-27 11:58] VITALS: BP 121/100
== END 2023-09-27 11:50 | disposition home or self-care (01) | DRG 178 ==
LOC: ED 18:21 → MS2 21:50
PROVIDERS: ADMIT Internal Medicine; ATTEND Physician Assistant Medical
PROC: XW033E5 Introduction of Remdesivir Anti-infective into Peripheral Vein, Percutaneous Approach, New Technology Group 5 (ICD-10-PCS; principal; 2023-09-25)
DX: U07.1 COVID-19 (principal); Z68.41 Body mass index [BMI] 40.0-44.9, adult; R55 Syncope and collapse; E86.0 Dehydration; E83.42 Hypomagnesemia; R53.1 Weakness; I10 Essential (primary) hypertension; I25.10 Atherosclerotic heart disease of native coronary artery without angina pectoris; I25.2 Old myocardial infarction; R79.89 Other specified abnormal findings of blood chemistry; R41.0 Disorientation, unspecified; R00.0 Tachycardia, unspecified; E80.6 Other disorders of bilirubin metabolism; R73.03 Prediabetes; I45.10 Unspecified right bundle-branch block; R33.9 Retention of urine, unspecified; E66.01 Morbid (severe) obesity due to excess calories; Z20.818 Contact with and (suspected) exposure to other bacterial communicable diseases; Z20.828 Contact with and (suspected) exposure to other viral communicable diseases; Z28.311 Partially vaccinated for COVID-19; Z79.82 Long term (current) use of aspirin; Z88.7 Allergy status to serum and vaccine; Z88.8 Allergy status to other drugs, medicaments and biological substances; Z95.5 Presence of coronary angioplasty implant and graft
CPT/HCPCS: 36415; 51702; 70450; 71275; 72125; 80048; 80053; 81001; 82746; 83036; 83690; 83735; 83880; 84484; 85025; 85027; 85379; 87040; 87633; 93005; 93307; 96360; 99285; A9270; J8540; Q9967; 87086